=== PATIENT | female | born 1980 | race Asian ===

== ENCOUNTER 2017-04-17 14:15 | Emergency (ER) | payer OTHER ==
[2017-04-17 17:27] LABS: BASOPHIL % 0.3 % (0-2); PLATELET COUNT 208 x10^3mcL (130-400); RED CELL DISTRIBUTION WIDTH 14.3 % (11.5-14.5)
[2017-04-17 17:54] VITALS: BP 113/62
== END 2017-04-17 18:20 | disposition home or self-care (01) ==
LOC: ED 14:15
PROVIDERS: Emergency Medicine
DX: O26.891 Other specified pregnancy related conditions, first trimester (principal); R10.32 Left lower quadrant pain; Z3A.11 11 weeks gestation of pregnancy
CPT/HCPCS: 36415

== ENCOUNTER → 2017-06-09 | Outpatient (CLI) | payer OTHER | END | disposition home or self-care (01) | LOC: US 09:47 | PROC: BY4CZZZ Ultrasonography of Second Trimester, Single Fetus (ICD-10-PCS; principal; 2017-06-09) | DX: Z34.90 Encounter for supervision of normal pregnancy, unspecified, unspecified trimester (principal) ==

== ENCOUNTER → 2017-10-02 | Outpatient (CLI) | payer OTHER ==
[2017-10-02 14:22] LABS: BASOPHIL % 0.4 % (0-2)
[2017-10-02 14:49] LABS: PLATELET COUNT 126 x10^3mcL (130-400); RED CELL DISTRIBUTION WIDTH 14.9 % (11.5-14.5)
== END | disposition home or self-care (01) ==
LOC: LB 13:57
DX: Z34.90 Encounter for supervision of normal pregnancy, unspecified, unspecified trimester (principal); Z11.3 Encounter for screening for infections with a predominantly sexual mode of transmission

== ENCOUNTER 2017-11-06 15:37 | Emergency (ER) | payer OTHER ==
[~2017-11-06] VITALS: Ht 160 cm; Wt 80.7 kg
[2017-11-06 16:22] VITALS: Ht 160 cm; Wt 80.7 kg
[2017-11-06 18:14] LABS: PLATELET COUNT 168 x10^3mcL (130-400)
[2017-11-06 18:16] LABS: CALCIUM 8.6 mg/dL (8.5-10.1); CARBON DIOXIDE 29.7 mmol/L (21-32); CHLORIDE SERUM 106 mmol/L (98-107); CREATININE SERUM 0.5 mg/dL (0.6-1.0); GFR1 > 60 mL/min; GLUCOSE SERUM 111 mg/dL (74-106); SODIUM SERUM 142 mmol/L (136-145)
[2017-11-06 18:20] LABS: ALKALINE PHOSPHATASE 109 U/L (46-116); ALT/SGPT 35 U/L (14-59); AST/SGOT 35 U/L (15-37); BILIRUBIN TOTAL 0.1 mg/dL (0.20-1.00); TOTAL PROTEIN, SERUM 6.2 g/dL (6.4-8.2)
[2017-11-06 18:21] LABS: ALBUMIN 2.1 g/dL (3.4-5.0)
[2017-11-06 18:27] LABS: RED CELL DISTRIBUTION WIDTH 16.9 % (11.5-14.5)
[2017-11-06 18:41] LABS: BAND NEUTROPHIL 0 % (0-10); BASOPHIL 0 % (0-2); MONOCYTE 3 % (0-7); SEGMENTED NEUTROPHILS 88 % (37-75); rbc morphology (normal/abnorm) ABNORMAL (NORMAL)
[2017-11-06 18:42] LABS: PLATELET MORPHOLOGY GIANT PLATELET SEEN
[2017-11-06 20:37] LABS: UA SPECIFIC GRAVITY <=1.005 (1.005-1.035); microscopic required? YES; urine erythrocyte 3+ (NEGATIVE)
[2017-11-07 00:48] VITALS: BP 118/51
== END 2017-11-07 00:48 | disposition home or self-care (01) ==
LOC: ED 15:37
PROVIDERS: Specialist
DX: O90.89 Other complications of the puerperium, not elsewhere classified (principal); R60.9 Edema, unspecified; D72.829 Elevated white blood cell count, unspecified; R10.12 Left upper quadrant pain
CPT/HCPCS: 83880; J2543; Q0092

== ENCOUNTER 2018-04-16 13:31 | Emergency (ER) | payer OTHER ==
[~2018-04-16] VITALS: Ht 162.6 cm; Wt 72.6 kg
[2018-04-16 13:53] VITALS: BP 102/72; Ht 162.6 cm; Wt 72.6 kg
== END 2018-04-16 15:34 | disposition home or self-care (01) ==
LOC: ED 13:31
DX: M54.6 Pain in thoracic spine (principal); M54.5 Low back pain
CPT/HCPCS: J1885